=== PATIENT | female | born 1950 | race American Indian/Alaskan Native ===

== ENCOUNTER 2019-01-09 09:46 | Emergency (ER) | payer MEDICARE, OTHER ==
[2019-01-09] MEDS ORDERED: IBUPROFEN 800 MG TAB PO ONE (09:57)
--- NOTE | 2019-01-09 09:57 | Emergency Department Report ---
ED Fall HPI - General Chief Complaint: Fall Stated Complaint: FALL LT SIDE PAIN Time Seen by Provider: 01/09/19 09:52 Source: patient, EMS Mode of arrival: Stretcher - History of Present Illness Initial Comments: 68 yo AA female comes to ER via EMS sp NIELS at her family members home this AM. She was walking without her cane when she tripped and fell landing on her l side. She is co left side pain- asking for pain meds; refused motrin. No loc no abrasions/lacs/bruising No meds prior to calling 911 MD Complaint: fall -: Sudden Fall From: standing When Fall Occurred: 1 hour [employer] Fall Witnessed: yes, by family Place Fall Occurred: home Loss of Consciousness: none Prolonged Down Time?: no Symptoms Prior to Fall: none Severity: mild Context: other Associated Symptoms: denies - Related Data Allergies Allergy/AdvReac Type Severity Reaction Status Date / Time No Known Allergies Allergy Unverified 01/09/19 10:01 ED Review of Systems ROS: Stated complaint: FALL LT SIDE PAIN Other details as noted in HPI Comment: All other systems reviewed and negative ED Past Medical Hx - Past Medical History Hx Hypertension: Yes Hx of Cancer: Yes (Liver CA) - Surgical History Past Surgical History?: No - Family History Family history: no significant - Social History Smoking Status: Never Smoker Substance Use Type: None ED Physical Exam - General Limitations: No Limitations General appearance: alert, in no apparent distress - Head Head exam: Present: atraumatic, normocephalic - Eye Eye exam: Present: normal appearance - ENT ENT exam: Present: mucous membranes moist - Neck Neck exam: Present: normal inspection - Respiratory Respiratory exam: Present: normal lung sounds bilaterally. Absent: respiratory distress - Cardiovascular Cardiovascular Exam: Present: regular rate, normal rhythm. Absent: systolic murmur, diastolic murmur, rubs, gallop - GI/Abdominal GI/Abdominal exam: Present: soft, normal bowel sounds - Extremities Exam Extremities exam: Present: normal inspection - Back Exam Back exam: Present: normal inspection - Neurological Exam Neurological exam: Present: alert, oriented X3 - Psychiatric Psychiatric exam: Present: normal affect, normal mood - Skin Skin exam: Present: warm, dry, intact, normal color. Absent: rash ED Course Vital Signs 01/09/19 01/09/19 09:48 11:23 Temperature 98 F Pulse Rate 77 80 Respiratory 16 14 Rate Blood Pressure 125/72 Blood Pressure 146/77 [Right] O2 Sat by Pulse 98 98 Oximetry ED Medical Decision Making - Radiology Data Radiology results: report reviewed, image reviewed - Medical Decision Making ground level mechanical fall no loc no blood thinners REFUSING MOTRIN wants ultram- not given for safety concerns imaging neg ambulating dc home with dc plan of care and otc treatment of pain Vital Signs 01/09/19 01/09/19 09:48 11:23 Temperature 98 F Pulse Rate 77 80 Respiratory 16 14 Rate Blood Pressure 125/72 Blood Pressure 146/77 [Right] O2 Sat by Pulse 98 98 Oximetry - Differential Diagnosis ro fx Critical care attestation.: If time is entered above; I have spent that time in minutes in the direct care of this critically ill patient, excluding procedure time. ED Disposition Clinical Impression: Fall, Contusion Disposition: DC-01 TO HOME OR SELFCARE Is pt being admited?: No Does the pt Need Aspirin: No Condition: Stable Instructions: Contusion in Adults (ED) Additional Instructions: ICE/REST/ELEVATE SORE LEG WARM COMPRESSES TO BACK MOTRIN OR TYLENOL FOR PAIN FOLLOW UP WITH PCP IN 48 HOURS FOR RECHECK FALL PRECAUTIONS- USE YOUR CANE Referrals: [facility] [Outside] - 3-5 Days Time of Disposition: 11:07
--- NOTE | 2019-01-09 11:15 | XRay Report ---
LUMBOSACRAL SPINE, 2 VIEWS INDICATION: pain sp fall. Fell and injured her lower back COMPARISON: None. IMPRESSION: Mild osteopenia is suspected. There is been previous left lateral fusion from T12-L2 wi th bone graft spacer overlying L1. Please correlate with history. There is normal height and alignme nt of the lumbar vertebra otherwise. No compression deformity or bone lesion. No significant degenera tive changes in the lower lumbar spine. The visualized sacrum and SI joints are unremarkable. Amorpho us soft tissue calcifications are identified lateral to the operative site measuring up to 5.3 x 3.6 cm in axial plane. The etiology of this is unclear. This may represent heterotopic calcifications. Th is may also represent cholelithiasis. BILATERAL HIPS 2 VIEWS WITH PELVIS INDICATION: pain sp fall. Patient fell and injured her hips. COMPARISON: None. IMPRESSION: Mild osteopenia is suspected. No acute osseous or soft tissue abnormality. No signific ant DJD. Signer Name: Gomez Goddard Jr, MD Signed: 01/09/2019 11:11 AM Workstation Name: [id number]
[2019-01-09 11:23] VITALS: BP 146/77
--- NOTE | 2019-01-09 11:39 | Cat Scan Report ---
CT CERVICAL SPINE WITHOUT CONTRAST INDICATION: pain sp fall. TECHNIQUE: Axial imaging performed through the cervical spine without the use of contrast. Sagittal and coronal reconstructed images were also reviewed. All CT scans at this location are performed us ing CT dose reduction for ALARA by means of automated exposure control. COMPARISON: None FINDINGS: Alignment: Spinal alignment is normal. Bones: There is no acute osseous abnormality. Mild multilevel discogenic DJD is present. Soft tissues: No acute or significant incidental soft tissue abnormality. IMPRESSION: No acute abnormality. Signer Name: Gomez Goddard Jr, MD Signed: 01/09/2019 11:35 AM Workstation Name: [id number]
--- NOTE | 2019-01-09 11:40 | Cat Scan Report ---
CT HEAD WITHOUT CONTRAST INDICATION : pain sp fall. TECHNIQUE: Axial imaging performed from the skull apex through the skull base without the use of con trast. All CT scans at this location are performed using CT dose reduction for ALARA by means of aut omated exposure control. COMPARISON: None FINDINGS: Parenchyma: No acute intracranial hemorrhage or parenchymal abnormality. A 6 mm chronic right fronta l lobe white matter lacunar infarct adjacent to the right frontal horn. Mild bilateral periventricula r white matter hypodensities. Ventricles: Ventricles are normal in size and appear symmetric. Mild enlargement of sulci for age. Soft tissues: Soft tissues including the orbits appear normal. Bones: No acute osseous abnormality. Sinuses: Sinuses and mastoid air cells are clear. IMPRESSION: 1. No acute abnormality. 2. A chronic right frontal lobe white matter lacunar infarct. 3. Mild chronic white matter microangiopathy and mild global cortical atrophy. Signer Name: Parish Hawley MD Signed: 01/09/2019 11:35 AM Workstation Name: [id number]
[2019-01-09] MEDS ORDERED: ACETAMINOPHEN 500 MG TAB PO ONE (12:36)
== END 2019-01-09 12:33 | disposition home or self-care (01) ==
LOC: ED 09:46
DX: R51 Headache (principal); M54.2 Cervicalgia; M54.5 Low back pain; W18.30XA Fall on same level, unspecified, initial encounter; Y93.89 Activity, other specified; Y92.89 Other specified places as the place of occurrence of the external cause; Y99.8 Other external cause status
CPT/HCPCS: 70450; 72100; 72125; 73521